=== PATIENT | female | born 1950 | race Caucasian/White ===

== ENCOUNTER 2021-03-04 08:17 | Day surgery (SDC) | payer OTHER, BC ==
[~2021-03-04] VITALS: Ht 157.5 cm; Wt 63.5 kg
[~2021-03-04 08:17] MED LIST: CALCIUM500 MG PO
[2021-03-04 09:10] VITALS: BP 124/69
--- NOTE | 2021-03-04 11:36 | EKG ---
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
[2021-03-04 14:19] VITALS: BP 124/69
--- NOTE | 2021-03-06 15:12 | H ---
[facility] [place] [address] HISTORY AND PHYSICAL Name: ROSE MCINTYRE Room #: DEP [facility] M.R.#: [id number] Admission: 03/04/21 Attend Phys: Faraz Ldeezma MD Discharge: 03/04/21 Date of : 50 Report #: [id number] THIS REPORT FOR: cc: Gibran Hsu MD, Reem MD Williams, Carson MD ~ DOC #: [id number] cc: Gibran Diana MD DATE OF SERVICE: 03/04/2021 DATE OF SURGERY 03/04/2021 PREOPERATIVE DIAGNOSES: 1. Malignant melanoma of the nose. 2. Mohs defect, right nasal sidewall 1.8 x 1.8 cm, partial thickness. POSTOPERATIVE DIAGNOSES: 1. Malignant melanoma of the nose. 2. Mohs defect, right nasal sidewall 1.8 x 1.8 cm, partial thickness. PROCEDURES PERFORMED: 1. Adjacent tissue transfer of the nose, 10 square cm. 2. Septal cartilage graft procurement and inset into nose. 3. Stafford lymph node biopsy, right neck. PRIMARY SURGEON: Faraz Ledezma MD ANESTHESIA: General. COMPLICATIONS: None. SPECIMENS: Right neck sentinel lymph node. IMPLANTS: None. INDICATIONS FOR THE PROCEDURE: The patient is a 70-year-old female who had a diagnosis of malignant melanoma of the right nasal sidewall for which she underwent Mohs micrographic excision on 03/02/2021, which resulted in a partial thickness defect of the right nasal ala and sidewall totalling 1.8 x 1.8 cm. She was sent to me for definitive reconstruction and sentinel lymph node interpretation. We discussed the benefits and risks and signed the consent for the above-named procedures. DESCRIPTION OF PROCEDURE: The patient was identified in the preoperative area. [address] [address] HISTORY AND PHYSICAL Name: ROSE MCINTYRE Room #: DEP [facility]..#: [id number] Admission: 03/04/21 Attend Phys: Faraz Ledezma MD Discharge: 03/04/21 Date of : 50 Report #: [id number] After undergoing nuclear medicine injection around periphery of the defect, she was confirmed her identity and procedure to be performed, and then she was transported to the operating room and placed supine on the operating table. At this point, general endotracheal anesthesia was induced and a timeout was called to ensure identity and procedure to be performed. Once all were in agreement, the right nasal defect was uncovered and injected locally with 1% lidocaine 1:100,000 epinephrine solution followed by mapping using the Neoprobe for the sentinel lymph node, which indicated it to be a right perifacial vein lymph node near the submandibular gland. A skin radha was made with a marker and a natural skin crease just inferior to this was identified and marked. This was also injected. The patient was then prepped and draped in the normal fashion. Starting first with the patient's sentinel lymph node biopsy, a skin incision was made with a monopolar Bovie on the cut function down into the subcutaneous tissues where hemostasis was achieved. Platysma was divided and then a subplatysmal flap was developed and elevated superiorly over the mandibular body. Immediately the facial artery and vein was identified and marginal mandibular branch was noted coursing just superficial to this and was protected at all times. Using the Neoprobe, the location of the lymph node was identified very quickly and this was sharply divided and excised using a sharp scissor and placed on the back table where it was again confirmed using the Neoprobe. At this point, hemostasis was achieved with bipolar cautery and the neck incision was thoroughly irrigated with sterile saline solution. This was then closed in layers using 4-0 Vicryl sutures and then the skin was closed directly with Dermabond. This completed the sentinel lymph node portion. Attention was then turned to the patient's right nasal defect. The area was very widely undermined in subcutaneous plane leaving all musculature and some mass down against the nasal framework. Once this was all elevated over the entire nasal dorsum and contralateral sidewall and up into the glabella, a sliding dorsal flap was marked along the right facial nasal boundary up into the glabella into the point and then down contralaterally toward the contralateral medial canthus. This was then sharply incised using a #15 blade to allow for adequate rotation and advancement into the defect. I determined that there would be too much alar retraction with primary closure. Therefore, I did harvest a septal cartilage graft from the patient's septum. A left-sided hemitransfixion incision was created and a submucoperichondrial flap was developed. A small area of already deviated septum was identified and sharply excised for procurement of the graft. This was placed in sterile saline bath and the septum was suctioned and then reclosed using 5-0 fast gut suture on the hemitransfixion incision. Next, a 2 cm x 4 mm alar rim graft was created and sutured into position along the right alar rim within the defect using 5-0 nylon stitches. At this point, the sliding dorsal flap was inset over the defect and sutured in a combination of interrupted and running 5-0 nylon sutures around its periphery. Of note, a small standing cutaneous deformity in the area of the tip had to be excised for skin redundancy. At this point, a final check was performed. There was no further bleeding or abnormality. I was extremely pleased with the [facility] and [facility] [address] [place] [address] HISTORY AND PHYSICAL Name: ROSE MCINTYRE Room #: DEP [facility].#: [id number] Admission: 03/04/21 Attend Phys: Faraz Ledezma MD Discharge: 03/04/21 Date of : 50 Report #: [id number] functional outcome of the patient's reconstruction. She was reversed from anesthesia and transported to the PACU in stable condition. Please note that all instrument, sponge and needle counts were correct x2. DISPOSITION: The patient can be discharged home after meeting general discharge criteria. She should not engage in any strenuous activity or heavy lifting. She has been given prescriptions for pain medication and antibiotics and she should take those as directed. She may call our office with any issues. She should clean the area minimum of 3 times per day and then apply a thick layer of Vaseline ointment over her incision lines every day. I will see her in 1 week's time for final pathology review and a wound check. Faraz Ledezma MD CW/MARIBELL <ELECTRONICALLY SIGNED> By: Faraz Ledezma MD 03/06/21 1512 1308 1425 MD gisselle Saeed
--- NOTE | 2021-03-09 18:06 | PATH ---
[facility] [address] [place] [address] PATHOLOGY RPT PROCEDURE Name: ANNELISE ALVARADO Room #: DEP [facility] M.R.#: [id number] Admission: 03/04/21 Date of : 50 Discharge: 03/04/21 Report #: [id number] Path Case #: [id number] [facility] Accession Number: [id number] . 01 Material submitted: . lymph node - RIGHT NECK SENTINEL LYMPH NODE BIOPSY. Modifiers: right, neck, SENTINEL . 01 Clinical history: . RIGHT NECK SENTINEL LYMPH NODE BIOPSY EXCISION FACIAL SKIN CANCER/MELANOMA MALIGNANT MELANOMA OF NOSE, MOHS DEFECT OF NOSE . 02 Diagnosis: Lymph node, right neck sentinel lymph node, biopsy: - Lymph node negative for malignancy. (See comment) (SCA:ghulam; 03/09/2021) S 03/09/2021 1141 Local . 02 Comment: MART-1 and S100 immunohistochemical stains were performed on block A1 and are negative for metastatic melanoma. (SCA:ghulam; 03/09/2021) . 02 Electronically signed: . Andrew Parra DO, Pathologist NPI- [id number] . 01 Gross description: . The specimen is received in formalin, labeled "Annelise Alvarado, right neck sentinel lymph node". Received is a segment of-harris lobulated tissue measuring 1.6 x 1.1 x 0.4 cm in greatest dimensions. Sectioning reveals a single lymph node measuring 1.3 cm in maximum dimensions. The specimen is bisected and entirely submitted in cassette A1. Immunohistochemical stains are ordered. (CAA; 03/05/2021) QAC/QA 03/05/2021 1058 Local . 02 Pathologist provided ICD-10: C43.31 . 02 CPT . 281243, L14795, L09654 Specimen Comment: A courtesy copy of this report has been sent to [phone], [phone] Specimen Comment: [phone] Specimen Comment: Report sent to / DR WATSON [address] [address] PATHOLOGY RPT PROCEDURE Name: ANNELISE ALVARADO Room #: DEP [facility] M.Nano#: [id number] Admission: 03/04/21 Date of : 50 Discharge: 03/04/21 Report #: [id number] Path Case #: [id number] Performed at: 01 [facility] [address] [id number] MD Jesus Massey MD Phone: [phone] Performed at: 02 [place] [id number] [address] [id number] MD Sawyer Cruz MD Phone: [phone]
== END 2021-03-04 15:15 | disposition home or self-care (01) ==
LOC: OR 08:17 → TBA 08:18 → OR 09:44 → EDSTATUS 09:59 → OR 12:21 → EDSTATUS 13:49 → OR 13:56
PROVIDERS: ATTEND Otolaryngology
DX: C43.31 Malignant melanoma of nose (principal); M95.0 Acquired deformity of nose; R59.0 Localized enlarged lymph nodes; Z98.890 Other specified postprocedural states; Z79.899 Other long term (current) drug therapy; Z20.822 Contact with and (suspected) exposure to COVID-19; Z85.820 Personal history of malignant melanoma of skin
CPT/HCPCS: 50010; 50101; 50386; 50417; 54118; 56526; 56527; 57006; 62110; 62900; 70005